=== PATIENT | male | born 1940 | race Caucasian/White ===

== ENCOUNTER → 2018-05-18 | Outpatient (CLI) | payer OTHER | LOC: FIMAGING 15:51 | PROVIDERS: ATTEND Internal Medicine | DX: S22.31XA Fracture of one rib, right side, initial encounter for closed fracture (principal); S42.134A Nondisplaced fracture of coracoid process, right shoulder, initial encounter for closed fracture; V19.9XXA Pedal cyclist (driver) (passenger) injured in unspecified traffic accident, initial encounter ==

== ENCOUNTER → 2019-01-18 | Outpatient (CLI) | payer OTHER | LOC: FIMAGING 14:30 | PROVIDERS: ATTEND Internal Medicine | DX: J40 Bronchitis, not specified as acute or chronic (principal); J98.01 Acute bronchospasm ==